=== PATIENT | male | born 1980 | race Caucasian/White ===

== ENCOUNTER 2016-09-06 12:22 | Emergency (ER) | payer OTHER ==
[2016-09-06 12:37] VITALS: BP 121/78; PULSE 79; RESP 16; TEMP 98.5; O2SAT 98
--- NOTE | 2016-09-06 12:45 | ED PDOC ---
Arrival/HPI - General Chief Complaint: Allergic Reaction Time Seen by Provider: 09/06/16 12:30 Historian: Patient - History of Present Illness Narrative History of Present Illness (Text): 09/06/16 12:30 36 y/o male, no pmh, nkda, c/o itching rash on the arm and leg x 1 week. Pt. stated that he was cleaning up his garden, return back in with itching rash, no fever or chills, no headache or night sweat, no change in soap/clothing/ detergent, no night sweat, no other medical or psychological complaints. Past Medical History - Provider Review Nursing Documentation Reviewed: Yes - Psychiatric Hx Psychophysiologic Disorder: No Hx Substance Use: No Family/Social History - Physician Review Nursing Documentation Reviewed: Yes Family/Social History: Unknown Family HX Smoking Status: Light Smoker < 10 Cigarettes Daily Hx Alcohol Use: Yes Frequency of alcohol use: Socially Hx Substance Use: No Allergies/Home Meds Allergies/Adverse Reactions: Allergies crab Allergy (Verified 09/06/16 12:32) SWELLING Review of Systems - Review of Systems Constitutional: absent: Fatigue, Fevers Eyes: absent: Vision Changes ENT: absent: Hearing Changes Respiratory: absent: SOB, Cough Cardiovascular: absent: Chest Pain Gastrointestinal: absent: Abdominal Pain, Nausea, Vomiting Skin: Rash, Pruritis, Skin Lesions. absent: Laceration, Abscess, Ulcer, Cellulitis Neurological: absent: Headache, Dizziness, Focal Weakness, Gait Changes, Speech Changes Physical Exam Vital Signs Reviewed: Yes Vital Signs Temp Pulse Resp BP Pulse Ox 09/06/16 12:33 98.5 F 79 16 121/78 98 Temperature: Afebrile Blood Pressure: Normal Pulse: Regular Respiratory Rate: Normal Appearance: Positive for: Well-Appearing, Non-Toxic, Comfortable Pain Distress: None Mental Status: Positive for: Alert and Oriented X 3 - Systems Exam Head: Present: Atraumatic, Normocephalic Pupils: Present: PERRL Extroacular Muscles: Present: EOMI Conjunctiva: Present: Normal Mouth: Present: Moist Mucous Membranes Neck: Present: Normal Range of Motion Respiratory/Chest: Present: Clear to Auscultation, Good Air Exchange. No: Respiratory Distress, Accessory Muscle Use Cardiovascular: Present: Regular Rate and Rhythm, Normal S1, S2. No: Murmurs Abdomen: Present: Normal Bowel Sounds. No: Tenderness, Distention, Peritoneal Signs Back: Present: Normal Inspection Upper Extremity: Present: Normal Inspection. No: Cyanosis, Edema Lower Extremity: Present: Normal Inspection. No: Edema Neurological: Present: GCS=15, Speech Normal Skin: Present: Warm, Dry, Rashes (scattered poison stefanie papule rash noted on the bilateral forearm and bilateral diane region following the pattern of t-shirt and shorts, no cellulitis or streaking, no ulcers, no bullseye or target signs. ), Normal Color Psychiatric: Present: Alert, Oriented x 3, Normal Insight, Normal Concentration Medical Decision Making ED Course and Treatment: 09/06/16 12:44 -Pt. 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 Disposition/Present on Arrival - Present on Arrival Any Indicators Present on Arrival: No History of DVT/PE: No History of Uncontrolled Diabetes: No Urinary Catheter: No History of Decub. 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 Prescriptions: Levocetirizine Dihydrochloride [Xyzal] 5 mg PO DAILY #10 tablet Triamcinolone 0.025 % [Triamcinolone 0.025 % Cream] 1 appl EXT BID #60 g Referrals: Blayne Quiroga MD [Staff Provider] - Follow up with primary [facility] at [facility] [place] [Outside] - Follow up with primary Forms: [facility] ([place]), WORK NOTE
== END 2016-09-06 13:06 | disposition home or self-care (01) ==
LOC: ED 12:22
DX: L23.7 Allergic contact dermatitis due to plants, except food (principal)
CPT/HCPCS: 96372; 99282; J1100